=== PATIENT | male | born 1995 | race Caucasian/White ===

== ENCOUNTER 2018-03-18 17:03 | Emergency (ER) | payer OTHER ==
[2018-03-18 19:50] LABS: Absolute Lymphocytes (CBC) 2.5 K/uL (0.7-4.9); Absolute Monocytes 0.5 K/uL (0.1-1.3); Absolute Neutrophil 6.2 K/uL (1.8-8.0); Basophils % 0.6 % (0-1.3); Eosinophils % 2.4 % (0-4.4); Hematocrit 44.6 % (39.6-49.0); Lymphocytes % 26.3 % (15.3-44.8); MCH 26.2 pg (27.0-35.0); MCV 78.2 fL (80-100); MPV 8.4 fL (7.6-11.3); Monocytes % 5.7 % (3.3-12.3); RBC Red Blood Cell Count 5.71 M/uL (4.33-5.43)
[2018-03-18 19:59] LABS: Bicarbonate 29 mEq/L (21-31); Glucose Level 116 mg/dL (65-120); Potassium 3.9 mEq/L (3.6-5.0); Sodium Level 141 mEq/L (135-145)
[2018-03-18 20:00] LABS: BUN Blood Urea Nitrogen 13 mg/dL (6-20)
--- NOTE | 2018-03-18 20:03 | RAD REPORT ---
EXAM DESCRIPTION: Paige Single View03/18/2018 6:19 pm CLINICAL HISTORY: Chest pain COMPARISON: October 2017 FINDINGS: The lungs appear clear of acute infiltrate. The heart is normal size IMPRESSION: No acute abnormalities displayed
--- NOTE | 2018-03-18 20:14 | EDPHYS ---
Physician Documentation [facility] Name: Garret Smith Age: 22 yrs Sex: Male : 1995 Arrival Date: 03/18/2018 Time: 17:06 Bed 23 Private MD: None, None ED Physician Boubacar Moody HPI: 03/18 18:23 This 22 yrs old Male presents to ER via Ambulatory with complaints of High jr8 Blood Pressure, Headache, Vomiting, Nose Bleed. 18:23 Onset: The symptoms/episode began/occurred acutely, today. Associated signs and jr8 symptoms: Pertinent positives: chest pain, headache. Severity of symptoms: At its worst the blood pressure was moderate, in the emergency department the blood pressure is improved, mildly. The patient has not experienced similar symptoms in the past. The patient has not recently seen a physician. Patient stated that he had headache, nausea, and nose bleed that started suddenly today. Mother had checked his blood pressure twice and noted it to be elevated . Historical: - Allergies: 17:36 No Known Allergies; aj - Home Meds: 17:36 losartan oral oral [Active]; aj - PMHx: 17:36 Hypertension; aj - PSHx: 17:36 Unable to obtain; aj - Immunization history:: Adult Immunizations up to date. - Social history:: Smoking status: Patient uses tobacco products, smokes one-half pack cigarettes per day. ROS: 18:23 Eyes: Negative for injury, pain, redness, and discharge, Neck: Negative for injury, jr8 pain, and swelling, Cardiovascular: Negative for chest pain, palpitations, and edema, Respiratory: Negative for shortness of breath, cough, wheezing, and pleuritic chest pain, Back: Negative for injury and pain, MS/Extremity: Negative for injury and deformity, Skin: Negative for injury, rash, and discoloration. 18:23 ENT: Positive for nose bleed. 18:23 Abdomen/GI: Positive for nausea and vomiting, Negative for abdominal pain, diarrhea, constipation, abdominal cramps, abdominal distension, anorexia, dysphagia, hematemesis, black/tarry stool, rectal pain, rectal bleeding, bowel incontinence, flatulence. 18:23 Neuro: Positive for headache, Negative for altered mental status, dizziness, gait disturbance, hearing loss, loss of consciousness, numbness, seizure activity, speech changes, syncope, near syncope, tingling, tinnitus, tremor, visual changes, weakness. Exam: 18:23 Eyes: Pupils equal round and reactive to light, extra-ocular motions intact. Lids and jr8 lashes normal. Conjunctiva and sclera are non-icteric and not injected. Cornea within normal limits. Periorbital areas with no swelling, redness, or edema. ENT: Nares patent. No nasal discharge, no septal abnormalities noted. Tympanic membranes are normal and external auditory canals are clear. Oropharynx with no redness, swelling, or masses, exudates, or evidence of obstruction, uvula midline. Mucous membranes moist. Neck: Trachea midline, no thyromegaly or masses palpated, and no cervical lymphadenopathy. Supple, full range of motion without nuchal rigidity, or vertebral point tenderness. No Meningismus. Cardiovascular: Regular rate and rhythm with a normal S1 and S2. No gallops, murmurs, or rubs. Normal PMI, no JVD. No pulse deficits. Respiratory: Lungs have equal breath sounds bilaterally, clear to auscultation and percussion. No rales, rhonchi or wheezes noted. No increased work of breathing, no retractions or nasal flaring. Abdomen/GI: Soft, non-tender, with normal bowel sounds. No distension or tympany. No guarding or rebound. No evidence of tenderness throughout. Back: No spinal tenderness. No costovertebral tenderness. Full range of motion. Skin: Warm, dry with normal turgor. Normal color with no rashes, no lesions, and no evidence of cellulitis. MS/ Extremity: Pulses equal, no cyanosis. Neurovascular intact. Full, normal range of motion. Neuro: Awake and alert, GCS 15, oriented to person, place, time, and situation. Cranial nerves II-XII grossly intact. Motor strength 5/5 in all extremities. Sensory grossly intact. Cerebellar exam normal. Normal gait. Vital Signs: 17:36 BP 173 / 81; Pulse 94; Resp 17; Temp 97.1; Pulse Ox 99% on R/A; Weight 188.24 kg; aj Height 6 ft. 2 in. (187.96 cm); Pain 6/10; 17:45 BP 148 / 81; Pulse 94; Resp 16; Pulse Ox 100% ; tl3 18:50 BP 141 / 78; Pulse 90; Resp 18; Pulse Ox 99% ; tl3 20:52 BP 137 / 70; Pulse 86; Resp 16; Pulse Ox 99% ; tl3 17:36 Body Mass Index 53.28 (188.24 kg, 187.96 cm) aj MDM: 17:44 Patient medically screened. 8 20:13 Data reviewed: vital signs, nurses notes, lab test result(s), EKG, radiologic studies, jr8 plain films, and as a result, I will discharge patient. Data interpreted: Pulse oximetry: on room air is 99 %. Interpretation: normal. Counseling: I had a detailed discussion with the patient and/or guardian regarding: the historical points, exam findings, and any diagnostic results supporting the discharge/admit diagnosis, lab results, radiology results, the need for outpatient follow up, a family practitioner, to return to the emergency department if symptoms worsen or persist or if there are any questions or concerns that arise at home. Response to treatment: the patient's symptoms have resolved after treatment. 03/18 18:05 Order name: Basic Metabolic Panel; Complete Time: 20:01 [facility] 03/18 18:05 Order name: BNP; Complete Time: 19:10 [facility] 03/18 18:05 Order name: CBC with Diff; Complete Time: 19:59 [facility] 03/18 18:05 Order name: Troponin (emerg Dept Use Only); Complete Time: 20:09 [facility] 03/18 18:05 Order name: XRAY Chest (1 view); Complete Time: 20:06 [facility] 03/18 18:05 Order name: Cardiac monitoring; Complete Time: 18:54 [facility] 03/18 18:05 Order name: Labs collected and sent; Complete Time: 18:54 [facility] 03/18 18:05 Order name: O2 Per Protocol; Complete Time: 18:54 [facility] 03/18 18:05 Order name: O2 Sat Monitoring; Complete Time: 18:54 [facility] 03/18 18:05 Order name: EKG; Complete Time: 18:06 [facility] 03/18 18:05 Order name: EKG - Nurse/Tech; Complete Time: 19:11 jr8 Administered Medications: No medications were administered Disposition: 03/18/18 20:14 Discharged to Home. Impression: Hypertensive Urgency . - Condition is Stable. - Discharge Instructions: Hypertension. - Prescriptions for losartan- hydrochlorothiazide 50-12.5 mg Oral tablet - take 1 tablet by ORAL route once daily; 30 tablet. - Medication Reconciliation Form, Thank You Letter, Antibiotic Education, Prescription Opioid Use, Work release form form. - Follow up: Private Physician; When: 5 - 6 days; Reason: Recheck today's complaints, Continuance of care, Re-evaluation by your physician. - Problem is new. - Symptoms are resolved. Addendum: 03/19/2018 22:28 Co-signature as Attending Physician, Boubacar Moody MD I agree with the assessment and k dr plan of care. Signatures: Dispatcher [employer] EDWY Chanel Nowak RN RN Boubacar Jay MD MD kdr Mino Nicolas PA PA jr8 Laurence Diehl RN RN tl3 Corrections: (The following items were deleted from the chart) 03/18 20:18 18:06 PROTIME (+INR)+[id number].BRZ ordered. [facility] 20:54 20:14 03/18/2018 20:14 Discharged to Home. Impression: Hypertensive Urgency . Condition tl3 is Stable. Forms are Medication Reconciliation Form, Thank You Letter, Antibiotic Education, Prescription Opioid Use. Follow up: Private Physician; When: 5 - 6 days; Reason: Recheck today's complaints, Continuance of care, Re-evaluation by your physician. Problem is new. Symptoms are resolved. jr8
--- NOTE | 2018-03-18 20:14 | ER ---
Nurse's Notes [facility] Name: Garret Smith Age: 22 yrs Sex: Male : 1995 Arrival Date: 03/18/2018 Time: 17:06 Bed 23 Private MD: None, None Diagnosis: Hypertensive Urgency Presentation: 03/18 17:35 Presenting complaint: Patient states: Reports vomiting x 1 episode followed by a nose aj bleed today with a headache. Patient reports high BP reading at home. Transition of care: patient was not received from another setting of care. Onset of symptoms was March 18, 2018. Care prior to arrival: Medication(s) given: Motrin, 600 mg. 17:35 Method Of Arrival: Ambulatory 17:35 Acuity: DARREL 3 20:54 Initial Sepsis Screen: Does the patient meet any 2 criteria? No. Patient's initial tl3 sepsis screen is negative. Does the patient have a suspected source of infection? No. Patient's initial sepsis screen is negative. Triage Assessment: 17:36 Headache History: The patient has had previous headaches and this one is similar to previous episodes. General: Appears in no apparent distress. comfortable, Behavior is calm, cooperative, appropriate for age. Pain: Complains of pain in face and scalp Pain currently is 6 out of 10 on a pain scale. Neuro: Level of Consciousness is awake, alert, obeys commands, Oriented to person, place, time, situation, Appropriate for age Reports headache. Respiratory: Airway is patent Respiratory effort is even, unlabored, Respiratory pattern is regular, symmetrical. GI: Abdomen is obese. Derm: Skin is intact, is healthy with good turgor, Skin is pink, warm \T\ dry. normal. 20:53 Pain: Pain began 2 hours ago. Also complains of no other associated symptoms. tl3 Historical: - Allergies: 17:36 No Known Allergies; aj - Home Meds: 17:36 losartan oral oral [Active]; aj - PMHx: 17:36 Hypertension; aj - PSHx: 17:36 Unable to obtain; aj - Immunization history:: Adult Immunizations up to date. - Social history:: Smoking status: Patient uses tobacco products, smokes one-half pack cigarettes per day. Screenin:45 Abuse screen: Denies threats or abuse. Nutritional screening: No deficits noted. tl3 Tuberculosis screening: No symptoms or risk factors identified. Fall Risk None identified. Assessment: 17:45 General: Appears in no apparent distress. comfortable, obese, well groomed, well tl3 developed, well nourished, Behavior is calm, cooperative, appropriate for age. Pain:. 17:45 Pain: Complains of pain in headache. Neuro: Level of Consciousness is awake, alert, tl3 obeys commands, Oriented to person, place, time, situation, Appropriate for age. Cardiovascular: Heart tones S1 S2 present Capillary refill in bilateral fingers Patient's skin is warm and dry. Respiratory: Airway is patent Trachea midline Respiratory effort is even, unlabored, Respiratory pattern is regular, symmetrical. GI: No signs and/or symptoms were reported involving the gastrointestinal system. : No signs and/or symptoms were reported regarding the genitourinary system. EENT: Reports nasal discharge that is bloody. Derm: No signs and/or symptoms reported regarding the dermatologic system. Musculoskeletal: No signs and/or symptoms reported regarding the musculoskeletal system. 18:50 Reassessment: Patient appears in no apparent distress at this time. No changes from tl3 previously documented assessment. Patient and/or family updated on plan of care and expected duration. Pain level reassessed. Patient is alert, oriented x 3, equal unlabored respirations, skin warm/dry/pink. 20:52 Reassessment: Patient appears in no apparent distress at this time. No changes from tl3 previously documented assessment. Patient and/or family updated on plan of care and expected duration. Pain level reassessed. Patient is alert, oriented x 3, equal unlabored respirations, skin warm/dry/pink. Vital Signs: 17:36 BP 173 / 81; Pulse 94; Resp 17; Temp 97.1; Pulse Ox 99% on R/A; Weight 188.24 kg; aj Height 6 ft. 2 in. (187.96 cm); Pain 6/10; 17:45 BP 148 / 81; Pulse 94; Resp 16; Pulse Ox 100% ; tl3 18:50 BP 141 / 78; Pulse 90; Resp 18; Pulse Ox 99% ; tl3 20:52 BP 137 / 70; Pulse 86; Resp 16; Pulse Ox 99% ; tl3 17:36 Body Mass Index 53.28 (188.24 kg, 187.96 cm) ED Course: 17:06 Patient arrived in ED. mr 17:07 None, None is Private Physician. mr 17:36 Triage completed. aj 17:36 Arm band placed on left wrist. Patient placed in an exam room. aj 17:44 Mino Nicolas PA is PHCP. jr8 17:44 Boubacar Moody MD is Attending Physician. jr8 17:45 Patient has correct armband on for positive identification. Bed in low position. Call tl3 light in reach. Side rails up X 1. Adult w/ patient. 18:06 Laurence Diehl, RN is Primary Nurse. tl3 18:18 X-ray completed. Portable x-ray completed in exam room. Patient tolerated procedure bb2 well. 18:20 XRAY Chest (1 view) In Process Unspecified. EDMS 18:26 No provider procedures requiring assistance completed. Initial lab(s) drawn, by me, tl3 sent to lab. Missed attempt(s): 18 gauge in right forearm. 18:50 Inserted saline lock: 20 gauge in right antecubital area, using aseptic technique. tl3 20:52 IV discontinued, intact, bleeding controlled, No redness/swelling at site. Pressure tl3 dressing applied. Administered Medications: No medications were administered Outcome: 20:14 Discharge ordered by . jr8 20:52 Discharged to home ambulatory. tl3 20:52 Condition: good 20:52 Discharge instructions given to patient, family, Instructed on discharge instructions, follow up and referral plans. medication usage, Demonstrated understanding of instructions, follow-up care, medications, Prescriptions given X 1, stressed importance of getting blood pressure under control 20:54 Patient left the ED. tl3 Signatures: Dispatcher [employer] EDMS Chanel Nowak, Day Lindo RN mr Mino Nicolas PA PA jr8 Alva Vo bb2 Laurence Diehl, RN RN tl3 Corrections: (The following items were deleted from the chart) 20:48 17:45 General: Appears in no apparent distress. comfortable, obese, well groomed, well tl3 developed, well nourished, Behavior is calm, cooperative, appropriate for age, tl3 20:48 20:45 Pain: Complains of pain in headache tl3 tl3 20:48 20:45 Neuro: Level of Consciousness is awake, alert, obeys commands, Oriented to tl3 person, place, time, situation, Appropriate for age tl3 20:48 20:45 Cardiovascular: Heart tones S1 S2 present Capillary refill in bilateral fingers tl3 Patient's skin is warm and dry. tl3 20:48 20:45 Respiratory: Breath sounds are clear bilaterally. tl3 tl3 20:48 20:45 GI: No signs and/or symptoms were reported involving the gastrointestinal system. tl3 tl3 20:48 20:45 : No signs and/or symptoms were reported regarding the genitourinary system. tl3tl3 20:48 20:45 EENT: No signs and/or symptoms were reported regarding the EENT system. tl3 tl3 20:48 20:45 Derm: No signs and/or symptoms reported regarding the dermatologic system. tl3 tl3 20:48 20:45 Musculoskeletal: No signs and/or symptoms reported regarding the musculoskeletal tl3 system. tl3
[2018-03-18 21:07] VITALS: TEMP 97.1
[2018-03-18 21:10] VITALS: O2SAT 99
[2018-03-18 21:11] VITALS: BP 137/70
--- NOTE | 2018-03-19 07:42 | EKG ---
Test Date: 2018-03-18 Test Time: 19:07:39 Repair Table Operator: TL MEASUREMENT RESULTS: Intervals: Rate: 88 IA: 182 QRSD: 86 QT: 360 QTc: 435 [place]: P: 37 IA: 182 QRS: 12 T: 16 INTERPRETIVE STATEMENTS: Normal sinus rhythm Normal ECG Compared to ECG 10/28/2017 12:27:32 No significant changes Electronically Signed On 03-19-18 07:41:39 CDT by Christian Patel
== END 2018-03-18 20:54 | disposition home or self-care (01) ==
LOC: ER 17:03
DX: I16.0 Hypertensive urgency (principal); F17.210 Nicotine dependence, cigarettes, uncomplicated
CPT/HCPCS: 36415; 71045; 80048; 83880; 84484; 85025; 93005; 99284